=== PATIENT | male | born 1950 | race Caucasian/White ===

== ENCOUNTER 2021-01-07 13:10 | Emergency (ER) | payer MEDICARE, OTHER ==
[~2021-01-07] VITALS: Ht 180.3 cm; Wt 135.6 kg
[2021-01-07 13:12] VITALS: BP 191/105
--- NOTE | 2021-01-07 13:50 | PHYS DOC ---
Past History Past Surgical History: Other Additional Past Surgical Histo: right knee scope, vasectomy General Adult EDM: Chief Complaint: CHEST PAIN HPI: HPI: 70-year-old male presents with shortness of breath and chest pain. The patient was sitting down to have lunch at a restaurant when he began to have heavy chest pressure. They had not started eating yet. The patient has not been having pains like this so he was very concerned. The patient has been having shortness of breath the last few days. He states that walking across the room is making him short of breath and he used to not be like that. He has no diagnosis of CHF or other heart problems. No history of stents or bypass. He has no significant lung history. He was recently changed from one NSAID to meloxicam for bilateral knee pain. No other medication changes. Patient denies fever or chills. Review of Systems: Review of Systems: Constitutional: Denies fever or chills Eyes: Denies change in visual acuity HENT: Denies nasal congestion or sore throat Respiratory: Shortness of breath Cardiovascular: Chest pain GI: Denies abdominal pain, nausea, vomiting, bloody stools or diarrhea : Denies dysuria Musculoskeletal: Denies back pain or joint pain Integument: Denies rash Neurologic: Denies headache, focal weakness or sensory changes Endocrine: Denies polyuria or polydipsia Lymphatic: Denies swollen glands Psychiatric: Denies depression or anxiety Allergies: Allergies: Allergies Coded Allergies Type Severity Reaction Last Updated Verified No Known Drug Allergies 01/07/21 No Physical Exam: PE: Constitutional: Well developed, well nourished, morbidly obese, no acute distress, non-toxic appearance. [] HENT: Normocephalic, atraumatic, bilateral external ears normal, oropharynx moist, no oral exudates, nose normal. [] Eyes: PERRLA, EOMI, conjunctiva normal, no discharge. [] Neck: Normal range of motion, no tenderness, supple, no stridor. [] Cardiovascular: Heart rate 73, regular rhythm, no murmur [] Lungs & Thorax: Bilateral breath sounds clear to auscultation [] Abdomen: Bowel sounds normal, firm, no tenderness, no masses, no pulsatile masses. [] Skin: Warm, dry, no erythema, no rash. [] Back: No tenderness, no CVA tenderness. [] Extremities: No tenderness, no cyanosis, no clubbing, ROM intact, no edema. [] Neurologic: Alert and oriented X 3, normal motor function, normal sensory f unction, no focal deficits noted. [] Psychologic: Affect normal, judgement normal, mood normal. [] Current Patient Data: Vital Signs: Vital Signs Date Time Temp Pulse Resp B/P (MAP) Pulse Ox O2 Delivery O2 Flow Rate FiO2 01/07/21 13:12 97.9 83 26 191/105 (133) 98 Room Air EKG: EKG: Sinus rhythm, rate 73, leftward axis, no ST elevation or depression, first- degree heart block. [] Radiology/Procedures: Radiology/Procedures: [] Impressions: INDICATION: Reason: SOB / Spl. Instructions: / History: COMPARISON: None. FINDINGS: Single view of chest obtained. Cardiomediastinal silhouette appears mildly enlarged. Haziness at the left lung base without definite consolidation elsewhere in the lungs IMPRESSION: * Haziness at the left lung base. A portion of this is likely secondary to overlap of soft tissue structures and atelectasis but superimposed infiltrate is possible and would correlate with symptoms. Electronically signed by: Cooper Cox MD (01/07/2021 1:56 PM) [id number] DICTATED AND SIGNED BY: COOPER COX MD DATE: 01/07/21 1350 CC: ISABELLA FRITZ DO; PCP,UNKNOWN ~MTH0 0 Heart Score: C/O Chest Pain: Yes HEART Score for Chest Pain: HEART Score for Chest Pain Response (Comments) Value History Slighlty/Non-Suspicious 0 ECG Normal 0 Age > 65 2 Risk Factors 1 or 2 Risk Factors 1 Total 3 Risk Factors: Risk Factors: DM, Current or recent (<one month) smoker, HTN, HLP, family history of CAD, obesity. Risk Scores: Score 0 - 3: 2.5% MACE over next 6 weeks - Discharge Home Score 4 - 6: 20.3% MACE over next 6 weeks - Admit for Clinical Observation Score 7 - 10: 72.7% MACE over next 6 weeks - Early Invasive Strategies Course & Med Decision Making: Course & Med Decision Making Pertinent Labs and Imaging studies reviewed. (See chart for details) The patient's EKG is negative for acute findings. No ST elevation. His labs are unremarkable except for an elevated BNP of 700. His troponin is negative. His chest x-ray suggest possible left lower pneumonia. His shortness of breath would correlate with this finding, but he does not have significant cough, fever, or white count. I will go ahead and treat him with azithromycin. I am still concerned with his bilateral lower extremity weakness so I will also put him on Lasix 20 mg daily for 5 days and recommend he follow-up with his primary physician this week. He is stable for discharge at this time. The patient's pain has remained resolved in the emergency room. [] Dragon Disclaimer: Dragon Disclaimer: This electronic medical record was generated, in whole or in part, using a voice recognition dictation system. Departure Departure: Impression: Primary Impression: Pneumonia Qualified Codes: J18.9 - Pneumonia, unspecified organism Additional Impression: Lower extremity edema Disposition: HOME / SELF CARE / HOMELESS Condition: STABLE Referrals: PCP,UNKNOWN (PCP) Patient Instructions: Edema, [id number], Pneumonia, Adult, [id number] Scripts Azithromycin (AZITHROMYCIN TABLET) 250 Mg Tablet 250 MG PO DAILY for ANTI-BIOTIC for 4 Days, #4 TAB 0 Refills Prov: ISABELLA FRITZ DO 01/07/21 Furosemide (LASIX) 20 Mg Tablet 1 TAB PO DAILY for edema for 5 Days, #5 TAB 0 Refills Prov: ISABELLA FRITZ DO 01/07/21 ISABELLA FRITZ DO Jan 07, 2021 13:50
[2021-01-07 13:55] LABS: BASO % 1 % (0-3); EOS # 0.2 x10^3/uL (0.0-0.7); EOS % 3 % (0-3); HEMOGLOBIN 13.1 g/dL (13.0-17.5); LYMPH # 1.5 x10^3/uL (1.0-4.8); LYMPH % 22 % (24-48); MEAN CORPUSCULAR HEMOGLOBIN 29 pg (25-35); MEAN CORPUSCULAR HGB CONC 33 g/dL (31-37); MEAN CORPUSCULAR VOLUME 89 fL (79-100); MONO # 0.8 x10^3/uL (0.0-1.1); MONO % 11 % (0-9); NEUT # 4.2 x10^3uL (1.8-7.7); NEUT % 63 % (31-73); PLATELET COUNT 177 x10^3/uL (140-400); RED BLOOD COUNT 4.48 x10^6/uL (4.30-5.70); RED CELL DISTRIBUTION WIDTH 15.5 % (11.5-14.5); WHITE BLOOD COUNT 6.7 x10^3/uL (4.0-11.0)
--- NOTE | 2021-01-07 13:58 | RAD ---
INDICATION: Reason: SOB / Spl. Instructions: / History: COMPARISON: None. FINDINGS: Single view of chest obtained. Cardiomediastinal silhouette appears mildly enlarged. Haziness at the left lung base without definite consolidation elsewhere in the lungs IMPRESSION: * Haziness at the left lung base. A portion of this is likely secondary to overlap of soft tissue st ructures and atelectasis but superimposed infiltrate is possible and would correlate with symptoms. Electronically signed by: Al Cox MD (01/07/2021 1:56 PM) [id number]
[2021-01-07 14:02] LABS: CALCIUM 8.7 mg/dL (8.5-10.1); CREATININE 0.7 mg/dL (0.7-1.3); GFR 110.9; POTASSIUM 4.4 mmol/L (3.5-5.1)
[2021-01-07 14:14] LABS: ALBUMIN 3.4 g/dL (3.4-5.0); TOTAL BILIRUBIN 0.5 mg/dL (0.2-1.0); TOTAL PROTEIN 6.9 g/dL (6.4-8.2)
[2021-01-07] MEDS ORDERED: AZIT250T6 PO (14:56)
[2021-01-07] MEDS ORDERED: FURO-69 PO (14:56)
[2021-01-07] MEDS ORDERED: FUROSEMIDE 40 MG TABLET PO ONE (15:00)
[2021-01-07] MEDS ORDERED: AZITHROMYCIN 250 MG TABLET. PO ONE (15:00)
--- NOTE | 2021-01-07 20:34 | EKG ---
[address] [address] Test Date: 2021-01-07 Test Time: 13:18:24 Pat Name: CHASE LAY Department: Room: Gender: M [employer]: SHAR : 1950 Requested By: ISABELLA FRITZ Order Number: [id number] Reading MD: Prashanth Garcia Measurements Intervals [place] Rate: 73 P: 48 [place]: 234 QRS: -53 QRSD: 120 T: 39 QT: 424 QTc: 471 Interpretive Statements SINUS RHYTHM PROLONGED [place] INTERVAL ABNORMAL LEFT AXIS DEVIATION LEFT ANTERIOR FASCICULAR BLOCK ABNORMAL ECG RI6.02 No previous ECG available for comparison Electronically Signed On 01-09-2021 13:45:11 CDT by Prashanth Garcia
== END 2021-01-07 15:34 | disposition home or self-care (01) ==
LOC: ER 13:10
DX: J18.9 Pneumonia, unspecified organism (principal); R60.0 Localized edema; Z20.822 Contact with and (suspected) exposure to COVID-19
CPT/HCPCS: 36415; 71045; 80053; 83880; 84484; 85025; 93005; 99285; C9803; U0003